=== PATIENT | male | born 1980 | race Caucasian/White ===

== ENCOUNTER → 2019-10-01 09:21 | Outpatient (BNVA) | payer BC, SELFPAY | PROVIDERS: Family Provider Family Medicine; PCP Family Medicine; Visit Provider Nurse Practitioner Psychiatric/Mental Health | DX: F33.1 Major depressive disorder, recurrent, moderate (principal); F43.12 Post-traumatic stress disorder, chronic; F17.200 Nicotine dependence, unspecified, uncomplicated; G40.909 Epilepsy, unspecified, not intractable, without status epilepticus | CPT/HCPCS: 99213 ==

== ENCOUNTER → 2019-11-04 15:03 | Outpatient (BNVA) | payer BC, SELFPAY | PROVIDERS: Family Provider Family Medicine; PCP Family Medicine; Visit Provider Nurse Practitioner Psychiatric/Mental Health | DX: F33.1 Major depressive disorder, recurrent, moderate (principal); F43.12 Post-traumatic stress disorder, chronic; F17.200 Nicotine dependence, unspecified, uncomplicated | CPT/HCPCS: 99213 ==

== ENCOUNTER → 2019-12-16 07:30 | Outpatient (BNVA) | payer BC, SELFPAY | PROVIDERS: Family Provider Family Medicine; PCP Family Medicine; Visit Provider Nurse Practitioner Psychiatric/Mental Health | DX: F33.1 Major depressive disorder, recurrent, moderate (principal); F43.12 Post-traumatic stress disorder, chronic; F17.200 Nicotine dependence, unspecified, uncomplicated | CPT/HCPCS: 99214 ==

== ENCOUNTER → 2019-12-25 08:20 | Outpatient (BNVA) | payer BC, SELFPAY | PROVIDERS: Family Provider Family Medicine; PCP Family Medicine; Visit Provider Nurse Practitioner Psychiatric/Mental Health | DX: F33.1 Major depressive disorder, recurrent, moderate (principal); F43.12 Post-traumatic stress disorder, chronic; F17.200 Nicotine dependence, unspecified, uncomplicated | CPT/HCPCS: 99213 ==

== ENCOUNTER → 2020-02-09 11:09 | Outpatient (BNVA) | payer BC, SELFPAY | PROVIDERS: Family Provider Family Medicine; PCP Family Medicine; Visit Provider Specialist | DX: G40.209 Localization-related (focal) (partial) symptomatic epilepsy and epileptic syndromes with complex partial seizures, not intractable, without status epilepticus (principal); F17.210 Nicotine dependence, cigarettes, uncomplicated | CPT/HCPCS: 99213 ==

== ENCOUNTER → 2020-02-10 08:26 | Outpatient (BNVA) | payer BC, SELFPAY | PROVIDERS: Family Provider Family Medicine; PCP Family Medicine; Visit Provider Counselor Professional | DX: F33.1 Major depressive disorder, recurrent, moderate (principal); F43.12 Post-traumatic stress disorder, chronic; F17.200 Nicotine dependence, unspecified, uncomplicated | CPT/HCPCS: 90834 ==

== ENCOUNTER → 2020-02-23 07:41 | Outpatient (BNVA) | payer BC, SELFPAY | PROVIDERS: Family Provider Family Medicine; PCP Family Medicine; Visit Provider Counselor Professional | DX: F33.1 Major depressive disorder, recurrent, moderate (principal); F43.12 Post-traumatic stress disorder, chronic; F17.200 Nicotine dependence, unspecified, uncomplicated | CPT/HCPCS: 90834 ==

== ENCOUNTER → 2020-03-08 08:22 | Outpatient (BNVA) | payer BC, SELFPAY | PROVIDERS: Family Provider Family Medicine; PCP Family Medicine; Visit Provider Counselor Professional | DX: F33.1 Major depressive disorder, recurrent, moderate (principal); F43.12 Post-traumatic stress disorder, chronic; F17.200 Nicotine dependence, unspecified, uncomplicated | CPT/HCPCS: 90834 ==

== ENCOUNTER → 2020-04-05 08:38 | Outpatient (BNVA) | payer BC, SELFPAY | PROVIDERS: Family Provider Family Medicine; Visit Provider Counselor Professional | DX: F33.1 Major depressive disorder, recurrent, moderate (principal); F43.12 Post-traumatic stress disorder, chronic; F17.200 Nicotine dependence, unspecified, uncomplicated | CPT/HCPCS: 90832 ==

== ENCOUNTER → 2021-03-22 07:50 | Outpatient (BNVA) | payer BC, SELFPAY | PROVIDERS: Family Provider Family Medicine; Visit Provider Specialist | DX: G40.909 Epilepsy, unspecified, not intractable, without status epilepticus (principal) | CPT/HCPCS: 99214 ==

== ENCOUNTER → 2023-01-26 14:55 | Outpatient (BNVA) | payer OTHER, SELFPAY | PROVIDERS: Family Provider Family Medicine; PCP Family Medicine; Visit Provider Family Medicine | DX: G40.909 Epilepsy, unspecified, not intractable, without status epilepticus (principal); Z72.51 High risk heterosexual behavior; Z11.3 Encounter for screening for infections with a predominantly sexual mode of transmission | CPT/HCPCS: 80061; 81000; 84439; 84443; 85025; 85049; 85384; 85610; 85730; 87491; 87591; 87806 ==

== ENCOUNTER → 2023-01-27 16:12 | Outpatient (BNVA) | payer OTHER, SELFPAY | PROVIDERS: Family Provider Family Medicine; PCP Family Medicine; Visit Provider Family Medicine | DX: F33.1 Major depressive disorder, recurrent, moderate (principal) | CPT/HCPCS: 80053; 87491; 87591 ==

== ENCOUNTER → 2023-08-11 11:50 | Outpatient (BNVA) | payer OTHER, SELFPAY | PROVIDERS: Family Provider Family Medicine; PCP Family Medicine; Visit Provider Emergency Medicine | DX: R30.0 Dysuria (principal); N39.0 Urinary tract infection, site not specified; N30.01 Acute cystitis with hematuria | CPT/HCPCS: 81000; 87086 ==

== ENCOUNTER → 2024-09-23 11:12 | Outpatient (BNVA) | payer OTHER, SELFPAY | PROVIDERS: Family Provider Family Medicine; PCP Family Medicine; Visit Provider Registered Nurse Neonatal Intensive Care | DX: J11.1 Influenza due to unidentified influenza virus with other respiratory manifestations (principal) | CPT/HCPCS: 87400 ==

== ENCOUNTER 2025-05-22 16:19 | Emergency (ER) | payer OTHER, SELFPAY ==
--- OUTSIDE RECORDS SUMMARY | 2025-05-22 16:22 | XMS_ITS | Encounter Summary ---
Author Organization [facility] Address [address] [place] [address] Care Team Providers Care Controller Mechanic Name Role Phone Unavailable Primary Care Provider Unavailabl e Encounter Details Date Type Department Care Team (Latest Contact Info) Description 12/26/2005 Outpatient Historical [facility]- Raymundo King [place] [address] [place] [phone] Edy Tamayo, [address] [place] [address] Pneumonia, Organism Unspecified (Primary Dx); Unspecified Asthma; Wheezing Social History Tobacco Use Types Packs/Day Years Used Date Smoking Tobacco: Never Assessed Sex and Gender Information Value Date Recorded Sex Assigned at Not on file 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
--- OUTSIDE RECORDS SUMMARY | 2025-05-22 16:22 | XMS_ITS | Encounter Summary ---
Author Organization [facility] Address [address] [place] [address] Care Team Providers Care Employment Educational Coord Name Role Phone Unavailable Primary Care Provider Unavailabl e Encounter Details Date Type Department Care Team (Latest Contact Info) Description 03/22/2006 Outpatient Historical [facility]- Raymundo King [place] [address] [place] [id number] Carmela Christianson MD [address] [phone] Lumbago (Primary Dx); Sciatica Social History Tobacco Use Types Packs/Day Years Used Date Smoking Tobacco: Never Assessed Sex and Gender Information Value Date Recorded Sex Assigned at Not on file 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
--- OUTSIDE RECORDS SUMMARY | 2025-05-22 16:22 | XMS_ITS | Encounter Summary ---
Author Organization [facility] Address [address] [place] [address] Care Team Providers Care Director Of Intercollegiate Athletics Name Role Phone Unavailable Primary Care Provider Unavailabl e Encounter Details Date Type Department Care Team (Latest Contact Info) Description 05/28/2006 Outpatient Historical [facility] [address] [phone] Brian Nunez MD NO ADDRESS ON FILE Dermatophytosis of Groin and Perianal Area (Primary Dx); Gout, Unspecified Social History Tobacco Use Types Packs/Day Years Used Date Smoking Tobacco: Never Assessed Sex and Gender Information Value Date Recorded Sex Assigned at Not on file 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
--- OUTSIDE RECORDS SUMMARY | 2025-05-22 16:22 | XMS_ITS | Encounter Summary ---
Author Organization [facility] Address [address] [place] [address] Care Team Providers Care Industrial Technology Teacher Name Role Phone Unavailable Primary Care Provider Unavailabl e Encounter Details Date Type Department Care Team (Latest Contact Info) Description 03/26/2005 Outpatient Historical [facility]-Raymundo King [place] [address] [place] [phone] Carmela Christianson MD [address] [phone] BACKACHE NOS (Primary Dx) Social History Tobacco Use Types Packs/Day Years Used Date Smoking Tobacco: Never Assessed Sex and Gender Information Value Date Recorded Sex Assigned at Not on file 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
--- OUTSIDE RECORDS SUMMARY | 2025-05-22 16:22 | XMS_ITS | Encounter Summary ---
Author Organization [facility] Address [address] [place] [address] Care Team Providers Care Finance Professional Name Role Phone Unavailable Primary Care Provider Unavailabl e Encounter Details Date Type Department Care Team (Latest Contact Info) Description 12/26/2005 Outpatient Historical [facility]-Raymundo King [place] [address] [place] [phone] Edy Tamayo, [address] [place] [address] Cough (Primary Dx); Unspecified Asthma; Wheezing Social History Tobacco Use Types Packs/Day Years Used Date Smoking Tobacco: Never Assessed Sex and Gender Information Value Date Recorded Sex Assigned at Not on file 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
--- OUTSIDE RECORDS SUMMARY | 2025-05-22 16:23 | XMS_ITS | Clinical Summary ---
Author Organization [facility] Address [address] Lynnn: [place] [address] Care Team Providers Care Data Developer Name Role Phone Unavailable Primary Care Provider Unavailabl e Allergies No known active allergies Medications duloxetine HCl (CYMBALTA ORAL) Take 90 mg by mouth. 11/18/2019 Active prazosin (MINIPRESS) 1 mg capsule Take 1 mg by mouth daily at bedtime. 11/18/2019 Active loratadine (CLARITIN) 10 mg tablet Take 10 mg by mouth daily. 11/18/2019 Active divalproex sodium (DEPAKOTE ORAL) Take 1,000 mg by mouth. 11/18/2019 Active ZONISAMIDE ORAL Take 400 mg by mouth. 11/18/2019 Active ibuprofen (MOTRIN) 200 mg tablet Take 200 mg by mouth every 6 hours as needed for Pain, Mild. 11/18/2019 Active Social History Tobacco Use Types Packs/Day Years Used Date Smoking Tobacco: Every Day Smokeless Tobacco: Never Alcohol Use Standard Drinks/Week Comments Never 0 (1 standard drink = 0.6 oz pur e alcohol) Sex and Gender Information Value Date Recorded Sex Assigned at Not on file Legal Sex Male 11:46 AM VP STRATEGY Gender Identity Not on file Sexual Orientation Not on file Last Filed Vital Signs Vital Sign Reading Time Taken Comments Blood Pressure 118/76 11/18/2019 2:50 PM CDT Pulse 96 11/18/2019 2:50 PM CDT Temperature 36.4 C (97.5 F) 11/18/2019 2:50 PM CDT Respiratory Rate 18 11/18/2019 2:50 PM CDT Oxygen Saturation - - Inhaled Oxygen Concentration - - Weight 85.7 kg (189 lb) 11/18/2019 2:50 PM CDT Height 177.8 cm (5' 10 ) 11/18/2019 2:50 PM CDT Body Mass Index 27.12 11/18/2019 2:50 PM CDT Plan of Treatment Health Maintenance Due Date Last Done Comments DTAP/TDAP/TD VACCINES (1 - Tdap) 1999 HEPATITIS B VACCINES (1 of 3 - 19+ 3-dose series) 10/04 HPV VACCINES (1 - 3-dose SCDM series) 2007 INFLUENZA VACCINE (#1) 2025
--- OUTSIDE RECORDS SUMMARY | 2025-05-22 16:23 | XMS_ITS | Encounter Summary ---
Author Organization [facility] Address [address] [place] [address] Care Team Providers Care Crate Maker Name Role Phone Unavailable Primary Care Provider Unavailabl e Encounter Details Date Type Department Care Team (Latest Contact Info) Description 03/26/2005 Outpatient Historical [facility]- Raymundo King [place] [address] [place] [phone] Carmela Christianson MD [address] [phone] Sprain of neck (Primary Dx) Social History Tobacco Use Types Packs/Day Years Used Date Smoking Tobacco: Never Assessed Sex and Gender Information Value Date Recorded Sex Assigned at Not on file 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
--- OUTSIDE RECORDS SUMMARY | 2025-05-22 16:23 | XMS_ITS | Clinical Summary ---
Author Organization [facility] Address [address] [place] [address] Care Team Providers Care Cloth Laminating Supervisor Name Role Phone Unavailable Primary Care Provider Unavailabl e Allergies No known active allergies Medications divalproex sodium (DEPAKOTE ORAL) Take 1,000 mg by mouth. Active ZONISAMIDE ORAL Take 400 mg by mouth. Active duloxetine HCl (CYMBALTA ORAL) Take 90 mg by mouth. Active ibuprofen (MOTRIN) 200 mg tablet Take 200 mg by mouth every 6 hours as needed for Pain, Mild. Active loratadine (CLARITIN) 10 mg tablet Take 10 mg by mouth daily. Active prazosin (MINIPRESS) 1 mg capsule Take 1 mg by mouth daily at bedtime. 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
[2025-05-22 16:32] VITALS: BP 122/74; PULSE 64; RESP 14; TEMP 36.6; O2SAT 99; BMI 25.1
--- NOTE | 2025-05-22 16:43 | ED_ITS ---
HPI - Abdominal Pain 2 General: Chief Complaint: Abdominal Pain Stated Complaint: Blood in stool Time Seen by Provider: 05/22/25 16:32 Source: patient Mode of arrival: ambulatory Limitations: no limitations History of Present Illness: 44-year-old male who states that he had went to the bathroom earlier today and noticed some slight bright red blood in his stool he states has had this happen before but never been checked out. He states he had some cramping abdominal pain denies any severe pain has no pain currently denies any diarrhea denies any vomiting denies any worse improved factors. Associated Symptoms: Reports hematochezia; Denies diarrhea, fever(s) and vomiting Related Data Home Medications ?Medication ?Instructions ?Recorded ?Confirmed diphenhydramine HCl 25 mg tablet 50 mg PO BEDTIME PRN Sleep 05/22/25 05/22/25 (Benadryl Allergy) Allergies Allergy/AdvReac Type Severity Reaction Status Date / Time bee venom protein (honey bee) Allergy Unknown swelling Verified 05/22/25 16:37 Review of Systems 2 Const: Denies: fever(s) GI: Reports: hematochezia; Denies: vomiting or diarrhea Skin/Breast: Denies: rash PFSH ED 2 PFSH: Medical History Hx of substance abuse Epilepsy Nicotine dependence with current use Chronic post-traumatic stress disorder Major depressive disorder, recurrent, moderate Social History Smoking and tobacco/nicotine status: never used tobacco/nicotine Alcohol intake: former Substance/Drug Use: former Date of last use: K2, last use 2-3yrs ago Current occupational status: employed Physical Exam 2 Const: COMMON NORMALS: no acute distress, patient oriented x3 and healthy appearing HENMT: COMMON NORMALS: normocephalic and atraumatic HEAD & SCALP: n ormocephalic and atraumatic Eye: COMMON NORMALS: conjunctivae normal CONJUNCTIVA: Yes conjunctivae normal Neck/C-Spine: COMMON NORMALS: full ROM and supple Chest: COMMONS NORMALS: normal inspection of the chest Resp: COMMON NORMALS: normal respiratory effort Cardio: COMMON NORMALS: regular rate RATE: regular rate GI: COMMON NORMALS: Normal to inspection, nondistended, normoactive bowel sounds present, Soft to palpation, non-tender and no masses PALPATION: Yes Soft to palpation OTHER: no hemorrhoids no fissure. no large amounts of blood hemoccult positive Extremity: COMMON NORMALS: normal to inspection and full ROM Neuro: COMMON NORMALS: patient oriented x3, moves all extremities and no focal motor deficits Psych: COMMON NORMALS: mental status grossly normal, Normal thought process present and cooperative THOUGHT PROCESS: Normal thought process present Skin: COMMON NORMALS: no rashes or lesions noted and no wounds GENERAL SKIN EXAM: no rashes or lesions noted Course 2 Vital Signs: Vital signs: Vital Signs Temperature 97.8 F 05/22/25 16:32 Pulse Rate 64 05/22/25 16:32 Respiratory Rate 14 05/22/25 16:32 Blood Pressure 122/74 05/22/25 16:32 Pulse Oximetry 99 05/22/25 16:32 Oxygen Delivery Me thod Room Air 05/22/25 16:32 MDM - Abdominal Pain Medical Decision Making Patient presents for bright red blood per rectum the rectal exam showed small amount of blood no signs of fissure or hemorrhoids. He has no large amounts of bleeding vital signs here are normal did review his labs they are normal including normal hemoglobin went over labs with patient informed him he does need a colonoscopy outpatient he is to return if worsening he understands agrees to the plan. Medical Records I reviewed the patient's medical records. Lab Data I reviewed the patient's lab results. 05/22/25 16:46 05/22/25 16:46 Labs/Radiology: Laboratory Results WBC 6.89 10^3/uL (3.29-11.43) 05/22/25 16:46 RBC 4.34 10^6/uL (3.85-5.65) 05/22/25 16:46 Hgb 14.50 g/dL (11.27-16.99) 05/22/25 16:46 Hct 43.2 % (37-53) 05/22/25 16:46 MCV 99.5 fl (82-101) 05/22/25 16:46 MCH 33.4 pg (27-33) H 05/22/25 16:46 MCHC 33.6 g/dL (30-55) 05/22/25 16:46 RDW 12.3 % (12.1-15.1) 05/22/25 16:46 Plt Count 193 10^3/cmm (157-399) 05/22/25 16:46 MPV 10.9 fL (7.4-10.4) H 05/22/25 16:46 Neut % (Auto) 57.9 % 05/22/25 16:46 Lymph % (Auto) 30.8 % 05/22/25 16:46 [place] % (Auto) 9.6 % 05/22/25 16:46 Eos % (Auto) 1.0 % 05/22/25 16:46 Baso % (Auto) 0.6 % 05/22/25 16:46 Neut # (Auto) 3.99 10^3/uL (1.8-7.7) 05/22/25 16:46 Lymph # (Auto) 2.1 10^3/uL (0.8-4.8) 05/22/25 16:46 [place] # (Auto) 0.7 10^3/uL (0.2-0.9) 05/22/25 16:46 Eos # (Auto) 0.1 10^3/uL (0.0-0.8) 05/22/25 16:46 Baso # (Auto) 0.0 10^3/uL (0.0-0.1) 05/22/25 16:46 Nucleated RBC % (auto) 0 % 05/22/25 16:46 Nucleated RBCs # 0.0 /100WBC 05/22/25 16:46 Sodium 139 mmol/L (136-145) 05/22/25 16:46 Potassium 3.8 mmol/L (3.5-5.1) 05/22/25 16:46 Chloride 102 mmol/L (98-107) 05/22/25 16:46 Carbon Dioxide 26 mmol/L (22-29) 05/22/25 16:46 Anion Gap 14.8 (5-19) 05/22/25 16:46 BUN 16 mg/dL (6-20) 05/22/25 16:46 Creatinine 1.0 mg/dL (0.7-1.2) 05/22/25 16:46 Glucose 84 mg/dL (65-115) 05/22/25 16:46 Calculated Osmolality 288 mOsm/kg (285-295) 05/22/25 16:46 Calcium 10.1 mg/dL (8.5-10.5) 05/22/25 16:46 Total Bilirubin 0.3 mg/dL (0.15-1.2) 05/22/25 16:46 AST 18 U/L (0-40) 05/22/25 16:46 ALT 22 U/L (0-41) 05/22/25 16:46 Alkaline Phosphatase 64 U/L (40-130) 05/22/25 16:46 Total Protein 7.8 g/dL (6.6-8.7) 05/22/25 16:46 Albumin 4.9 g/dL (3.5-5.2) 05/22/25 16:46 Globulin 2.9 g/dL (1.3-4.6) 05/22/25 16:46 No radiology studies performed this visit Discharge Plan Discharge Patient Disposition: Home Clinical Impression: Bright red blood per rectum Condition: Stable Prescriptions: No Action diphenhydramine HCl [Benadryl Allergy] 25 mg Tablet 50 mg PO BEDTIME PRN (Reason: Sleep) Discharge Orders: Discharge ED (Routine); Ordered 05/22/25 Ordered By: Suad Lala Referrals: Gilbert Gandara MD [Physician, General Surgery] - 4-7 days Forest Michel MD [Family Provider, Family Practice] Bright Avila MD [Primary Care Provider, Family Practice] Discharge Diet: Advance as tolerated Discharge Activity: Resume usual activity Patient Instructions: Gastrointestinal Bleeding (ED) Print Language: Maltese Coding Level of Care Code ED Principal Software Architect for Jonathan Lyons
[2025-05-22 16:50] LABS: Hematocrit 43.2 % (37-53); Hemoglobin 14.50 g/dL (11.27-16.99); Mean Corpuscular HGB Conc 33.6 g/dL (30-55); Mean Corpuscular Hemoglobin 33.4 pg (27-33); Mean Corpuscular Volume 99.5 fl (82-101); Nucleated Red Blood Cells % 0 %; Platelet Count 193 10^3/cmm (157-399); Red Blood Count 4.34 10^6/uL (3.85-5.65); White Blood Count 6.89 10^3/uL (3.29-11.43)
[2025-05-22 17:10] LABS: Alanine Aminotransferase 22 U/L (0-41); Albumin Level 4.9 g/dL (3.5-5.2); Alkaline Phosphatase 64 U/L (40-130); Anion Gap 14.8 (5-19); Aspartate Amino Transferase 18 U/L (0-40); Blood Urea Nitrogen 16 mg/dL (6-20); Calcium 10.1 mg/dL (8.5-10.5); Carbon Dioxide 26 mmol/L (22-29); Chloride 102 mmol/L (98-107); Creatinine Clr Calc Pharmacy 100.7355; Globulin 2.9 g/dL (1.3-4.6); Glucose 84 mg/dL (65-115); Osmolality Calculated 288 mOsm/kg (285-295); Potassium 3.8 mmol/L (3.5-5.1); Sodium 139 mmol/L (136-145); Total Protein 7.8 g/dL (6.6-8.7)
[2025-05-22 17:33] VITALS: BP 117/80; PULSE 60; O2SAT 96
[2025-05-22 17:57] LABS: INR 0.86 (0.8-1.2); Prothrombin Time 12.30 SECONDS (12.1-14.9)
--- NOTE | 2025-05-25 07:18 | DCPLANNER ---
messaged gen surg for er f/u
== END 2025-05-22 17:35 | disposition home or self-care (01) ==
PROVIDERS: Emergency Provider Emergency Medicine; Family Provider Family Medicine; PCP Family Medicine
DX: K62.5 Hemorrhage of anus and rectum (principal)
CPT/HCPCS: 36415; 80053; 85025; 85610; 99283